=== PATIENT | female | born 1980 | race Two or more races ===

== ENCOUNTER 2018-01-23 13:59 | Emergency (ER) | payer BC ==
[~2018-01-23] VITALS: Ht 160 cm; Wt 88.5 kg
[~2018-01-23 13:59] MED LIST: METF-442 PO
--- NOTE | 2018-01-23 14:03 | NUR ---
A/OX4, AMBULATORY IN A STEADY GAIT TO ED BED 13 C/O NON PROVOKED MID STRENAL CHEST PAIN-SHARP RADIATING TO THE BACK X 11AM. PT WAS SEEN BY HER STAFF AUDITOR TODAY AND HER HEART RATE WAS NOTED TO BE FAST AND SHE WAS SENT HERE TO EVALUATED. GOWNED AND PLACED ON CONT MONITORING. ALL NEEDS ARE ATTENDED, KEPT WARM AND COMFORTABLE. WILL CONT TO MONITOR
--- NOTE | 2018-01-23 14:27 | NUR ---
EKG IN PROGRESS AT BEDSIDE.
[2018-01-23 15:40] LABS: BASOPHILS % (AUTO) 0.4 % (0.0-2.0); EOSINOPHILS % (AUTO) 0.9 % (0.0-6.0); HEMATOCRIT 36 % (33-45); LYMPHOCYTES # (AUTO) 2.6 /CMM (0.8-4.8); LYMPHOCYTES % (AUTO) 33.7 % (20.0-44.0); MEAN CORPUSCULAR HGB CONC 33 g/dl (31.0-36.0); MEAN CORPUSCULAR VOLUME 73 fL (82-100); MONOCYTES # (AUTO) 0.5 /CMM (0.1-1.30); MONOCYTES % (AUTO) 6.8 % (2.0-12.0); NEUTROPHILS # (AUTO) 4.5 /CMM (1.8-8.9); NEUTROPHILS % (AUTO) 58.2 % (43.0-81.0); PLATELET COUNT (AUTO) 414 /CMM (150-450); RDW COEFFICIENT OF VARIATION 16.4 (11.5-15.0); WHITE BLOOD COUNT (AUTO) 7.7 K/uL (4.3-11.0)
[2018-01-23 15:53] LABS: INR 0.84 (0.85-1.15)
[2018-01-23 15:55] LABS: CARBON DIOXIDE 31 mmol/L (21-32); CHLORIDE 101 mmol/L (98-107); CREATININE 0.7 mg/dL (0.6-1.3); GLUCOSE 150 mg/dL (74-106); POTASSIUM 3.2 mmol/L (3.5-5.1); SODIUM SERUM 140 mmol/L (136-145); UREA NITROGEN, BLOOD 9 mg/dL (7-18)
[2018-01-23 15:57] LABS: TROPONIN I < 0.017 ng/mL (0.00-0.056)
[2018-01-23] MEDS ORDERED: POTASSIUM CHLORIDE 20 MEQ TAB.PRT.SR PO ONE ×2 (16:30→16:37)
[2018-01-23 19:09] VITALS: BP 135/78
--- NOTE | 2018-01-23 19:09 | NUR ---
IV removed. Catheter intact and site benign. Pressure and 4x4 applied to site. No bleeding noted.Patient discharged to home in stable condition. Written and verbal after care instructions given. Patient verbalizes understanding of instruction.
== END 2018-01-23 19:12 | disposition home or self-care (01) ==
LOC: ER 14:04
DX: R07.2 Precordial pain (principal); E87.6 Hypokalemia; E11.9 Type 2 diabetes mellitus without complications; I45.10 Unspecified right bundle-branch block; M06.9 Rheumatoid arthritis, unspecified
CPT/HCPCS: 36415; 71045; 80048; 84443; 84484 ×2; 85025; 85730; 93005 ×2; 99285; A4606; Z7610

== ENCOUNTER 2018-03-26 20:29 | Emergency (ER) | payer BC, OTHER ==
[~2018-03-26 20:29] MED LIST changes: -METF-442 PO; +METF10004 PO
--- NOTE | 2018-03-26 21:23 | NUR ---
CALLED PT NAME X3 IN WAITING ROOM. ADMITTING STATES SHE MIGHT HAVE LEFT. WILL FOLLOW UP.
--- NOTE | 2018-03-26 21:34 | NUR ---
CALLED PT NAME X 3 IN WR. NO RESPONSE.
== END 2018-03-26 21:37 | disposition left against medical advice (07) ==
LOC: ER 20:29
DX: Z53.21 Procedure and treatment not carried out due to patient leaving prior to being seen by health care provider (principal)

== ENCOUNTER 2019-04-24 20:14 | Emergency (ER) | payer BC, OTHER ==
[~2019-04-24] VITALS: Ht 160 cm; Wt 83.5 kg
[~2019-04-24 20:14] MED LIST changes: +METF-442 PO; -METF10004 PO
--- NOTE | 2019-04-24 20:32 | NUR ---
PT BIB SELF FROM HOME FOR CP X 1 WEEK; WORSE TODAY, PT AAOX4, -SOB, NAD NOTED, VSS, PENDING MD CONNER
[2019-04-24 20:50] LABS: BASOPHILS % (AUTO) 0.6 % (0.0-2.0); EOSINOPHILS % (AUTO) 1.8 % (0.0-6.0); HEMATOCRIT 38 % (33-45); HEMOGLOBIN 12.1 g/dL (11.5-14.8); LYMPHOCYTES # (AUTO) 2.2 /CMM (0.8-4.8); LYMPHOCYTES % (AUTO) 31.3 % (20.0-44.0); MEAN CORPUSCULAR HGB CONC 32 g/dl (31.0-36.0); MEAN CORPUSCULAR VOLUME 72 fL (82-100); MONOCYTES # (AUTO) 0.7 /CMM (0.1-1.30); MONOCYTES % (AUTO) 10.7 % (2.0-12.0); NEUTROPHILS # (AUTO) 3.9 /CMM (1.8-8.9); NEUTROPHILS % (AUTO) 55.6 % (43.0-81.0); PLATELET COUNT (AUTO) 450 /CMM (150-450); RED BLOOD CELL COUNT(AUTO) 5.22 MIL/uL (4.0-5.2)
[2019-04-24 20:58] LABS: CALCIUM, SERUM 8.9 mg/dL (8.5-10.1); CREATININE 0.7 mg/dL (0.6-1.3); POTASSIUM 2.9 mmol/L (3.5-5.1)
[2019-04-24 21:04] LABS: ALBUMIN 3.6 g/dL (3.4-5.0); BILIRUBIN,DIRECT 0.1 mg/dL (0.0-0.2); BILIRUBIN,TOTAL 0.2 mg/dL (0.2-1.0); TOTAL PROTEIN, SERUM 7.1 g/dL (6.4-8.2)
[2019-04-24 21:11] LABS: BAND % (MANUAL) 14 % (0.0-5.0); EOSINOPHILS % (MANUAL) 3 % (0-4); LYMPHOCYTES % (MANUAL) 28 % (16-48); MONOCYTES % (MANUAL) 12 % (0-11.0); NEUTROPHILS % (MANUAL) 43 (42-76)
[2019-04-24] MEDS ORDERED: CT SWABBABLE VALVE TRANS SET 1 EA INFUS.SET MC ONE (21:44)
[2019-04-24] MEDS ORDERED: IV NS 0.9% 250 ML IV ONE (21:44)
[2019-04-24] MEDS ORDERED: IOHEXOL-350 100 ML VIAL IV ONE (21:44)
[2019-04-24] MEDS ORDERED: POTASSIUM CHLORIDE 20 MEQ TAB.PRT.SR PO ONE (22:00)
--- NOTE | 2019-04-24 22:38 | NUR ---
Patient discharged to home in stable condition. Written and verbal after care instructions given. Patient verbalizes understanding of instruction. IV removed. Catheter intact and site benign. Pressure and 4x4 applied to site. No bleeding noted.
[2019-04-24 22:44] VITALS: BP 121/76
== END 2019-04-24 22:46 | disposition home or self-care (01) ==
LOC: ER 20:14
DX: E11.9 Type 2 diabetes mellitus without complications (principal); R07.89 Other chest pain; E87.6 Hypokalemia; I10 Essential (primary) hypertension; I45.10 Unspecified right bundle-branch block; R00.0 Tachycardia, unspecified
CPT/HCPCS: 36415; 71045; 71275; 80048; 80076; 84484; 85025; 93005 ×3; 99284; J7050; Q9967

== ENCOUNTER → 2021-04-08 | Emergency (ER) | payer BC ==
[~2021-04-08] VITALS: Ht 160 cm; Wt 88.9 kg
[~2021-04-08] MED LIST changes: +NITR100C6 PO; +ONDANSETRON 4 MG TAB.RAPDIS ONE; +ONDANSETRON 4 MG TAB.RAPDIS SL ONE
[2021-04-08 12:05] VITALS: BP 112/79
--- NOTE | 2021-04-08 12:14 | NUR ---
THE PATIENT BIBS FOR C/O BACK PAIN X 3 DAYS ASSOCIATED WITH FOUL SMELLING DARK YELLOW URINE. RATES PAIN 8/10. WILL CONTINUE TO MONITOR THE PATIENT.
[2021-04-08 12:54] LABS: BILIRUBIN,URINE Negative (NEGATIVE); COLOR,URINE YELLOW (YELLOW); LEUKOCYTE ESTERASE ,URINE Negative (NEGATIVE); NITRITE, URINE Negative (NEGATIVE); PROTEIN,URINE Negative (NEGATIVE); UGLUCOSE >=1000 mg/dL (NEGATIVE); UROBILINOGEN,URINE 0.2 EU/dL (0.2)
[2021-04-08 12:55] LABS: BACTERIA,URINE Few /HPF (None Seen); SQUAMOUS EPITHELIAL CELL,UR Few /HPF (None Seen)
--- NOTE | 2021-04-08 13:22 | NUR ---
Patient discharged to home in stable condition. Written and verbal after care instructions given. Patient verbalizes understanding of instruction.
--- NOTE | 2021-04-08 13:23 | NUR ---
UNABLE TO DEPART THE PATIENT FROM [facility]
== END | disposition home or self-care (01) ==
LOC: ER 13:26
DX: N39.0 Urinary tract infection, site not specified (principal); E11.9 Type 2 diabetes mellitus without complications; I10 Essential (primary) hypertension; Z79.84 Long term (current) use of oral hypoglycemic drugs
CPT/HCPCS: 81001; 84703; 87086; 99283; Q0162

== ENCOUNTER 2022-01-07 10:14 | Emergency (ER) | payer BC ==
[~2022-01-07] VITALS: Ht 160 cm; Wt 83.5 kg
[~2022-01-07 10:14] MED LIST changes: -ONDANSETRON 4 MG TAB.RAPDIS ONE; -ONDANSETRON 4 MG TAB.RAPDIS SL ONE
--- NOTE | 2022-01-07 10:50 | NUR ---
RIGHT FLANK PAIN UPON WAKING UP THIS MORNING. AAOX4, AMBULATORY, IN PAIN 04/03
--- NOTE | 2022-01-07 11:43 | NUR ---
URINE SAMPLE COLLECTED AND SENT TO LAB.
[2022-01-07 12:00] LABS: BASOPHILS # (AUTO) 0.1 K/uL (0.0-0.2); BASOPHILS % (AUTO) 0.7 % (0.0-2.0); EOSINOPHILS % (AUTO) 0.1 % (0.0-6.0); HEMATOCRIT 36 % (33-45); HEMOGLOBIN 11.1 g/dL (11.5-14.8); LYMPHOCYTES # (AUTO) 1.9 K/uL (0.8-4.8); LYMPHOCYTES % (AUTO) 17.7 % (20.0-44.0); MEAN CORPUSCULAR HGB CONC 31 g/dl (31.0-36.0); MEAN CORPUSCULAR VOLUME 68 fL (82-100); MONOCYTES # (AUTO) 0.5 K/uL (0.1-1.30); MONOCYTES % (AUTO) 4.6 % (2.0-12.0); NEUTROPHILS # (AUTO) 8.1 K/uL (1.8-8.9); NEUTROPHILS % (AUTO) 76.9 % (43.0-81.0); PLATELET COUNT (AUTO) 438 K/uL (150-450); RED BLOOD CELL COUNT(AUTO) 5.36 MIL/uL (4.0-5.2); WHITE BLOOD COUNT (AUTO) 10.5 K/uL (4.3-11.0)
[2022-01-07 12:04] LABS: BILIRUBIN,URINE NEGATIVE (NEGATIVE); COLOR,URINE YELLOW (YELLOW); LEUKOCYTE ESTERASE ,URINE NEGATIVE (NEGATIVE); NITRITE, URINE NEGATIVE (NEGATIVE); PROTEIN,URINE NEGATIVE (NEGATIVE); UGLUCOSE >=1000 mg/dL (NEGATIVE); UROBILINOGEN,URINE 0.2 EU/dL (0.2)
[2022-01-07 12:07] LABS: BILIRUBIN,DIRECT 0.1 mg/dL (0.0-0.2); BILIRUBIN,TOTAL 0.2 mg/dL (0.2-1.0); CALCIUM, SERUM 10.1 mg/dL (8.5-10.1); CREATININE 0.8 mg/dL (0.6-1.3); POTASSIUM 3.8 mmol/L (3.5-5.1); TOTAL PROTEIN, SERUM 8.2 g/dL (6.4-8.2)
[2022-01-07 12:30] LABS: RBC,URINE 0-1 /HPF (0-2)
[2022-01-07 12:31] LABS: BACTERIA,URINE Few /HPF (None Seen); SQUAMOUS EPITHELIAL CELL,UR Moderate /HPF (None Seen); YEAST,URINE Few /HPF (None Seen)
--- NOTE | 2022-01-07 12:34 | NUR ---
ULTRA SOUND TECH. AT BED SIDE
[2022-01-07] MEDS ORDERED: HYDROCODONE/APAP 10/325MG TABLET PO ONE (13:00)
[2022-01-07] MEDS ORDERED: IBUPROFEN 600 MG TABLET PO ONE (13:00)
[2022-01-07] MEDS ORDERED: HYDROCODONE/APAP 10/325MG TABLET ONE (13:12)
[2022-01-07] MEDS ORDERED: IBUPROFEN 600 MG TABLET ONE (13:13)
[2022-01-07] MEDS ORDERED: IBUP-1955 PO (14:57)
[2022-01-07] MEDS ORDERED: TRAM50TA2 PO (14:57)
--- NOTE | 2022-01-07 15:05 | NUR ---
Patient discharged to home in stable condition. Written and verbal after care instructions given. Patient verbalizes understanding of instruction.
[2022-01-07 15:06] VITALS: BP 115/80
== END 2022-01-07 15:06 | disposition home or self-care (01) ==
LOC: ER 10:21
DX: N20.0 Calculus of kidney (principal); E11.9 Type 2 diabetes mellitus without complications; I10 Essential (primary) hypertension; Z79.84 Long term (current) use of oral hypoglycemic drugs
CPT/HCPCS: 36415; 76770-TC; 80048-TC; 80076-TC; 81001; 83690-TC; 84703-TC; 85025-TC

== ENCOUNTER 2023-01-17 14:51 | Emergency (ER) | payer BC ==
[~2023-01-17] VITALS: Ht 160 cm; Wt 75.7 kg
[~2023-01-17 14:51] MED LIST changes: +IBUP-1955 PO; +TRAM50TA2 PO
--- NOTE | 2023-01-17 15:20 | NUR ---
RECEIVED PT 42 YRS FEMALE CAME FROM HOME C/O GENRALIZED WEEKNESS AND SYNCOPY FAINT AND FALL DOWN AND HIT HERE HEAD C/O HEADCK
--- NOTE | 2023-01-17 16:01 | NUR ---
ANAIS TO BE SEE BY
[2023-01-17] MEDS ORDERED: IV NS 0.9% 1,000 ML BAG IV ONE (17:00)
--- NOTE | 2023-01-17 17:16 | NUR ---
TO CT SCAN OF HEAD
[2023-01-17 17:21] LABS: BASOPHILS % (AUTO) 0.3 % (0.0-2.0); EOSINOPHILS % (AUTO) 0.4 % (0.0-6.0); HEMATOCRIT 29 % (33-45); LYMPHOCYTES # (AUTO) 2.4 K/uL (0.8-4.8); LYMPHOCYTES % (AUTO) 28.2 % (20.0-44.0); MEAN CORPUSCULAR HGB CONC 31 g/dl (31.0-36.0); MEAN CORPUSCULAR VOLUME 68 fL (82-100); MONOCYTES # (AUTO) 0.7 K/uL (0.1-1.30); MONOCYTES % (AUTO) 7.7 % (2.0-12.0); NEUTROPHILS # (AUTO) 5.4 K/uL (1.8-8.9); NEUTROPHILS % (AUTO) 63.4 % (43.0-81.0); PLATELET COUNT (AUTO) 383 K/uL (150-450); RED BLOOD CELL COUNT(AUTO) 4.23 MIL/uL (4.0-5.2); WHITE BLOOD COUNT (AUTO) 8.5 K/uL (4.3-11.0)
[2023-01-17 17:32] LABS: CARBON DIOXIDE 26 mmol/L (21-32); CHLORIDE 99 mmol/L (98-107); CREATININE 0.8 mg/dL (0.6-1.3); GLUCOSE 97 mg/dL (74-106); POTASSIUM 3.3 mmol/L (3.5-5.1); SODIUM SERUM 134 mmol/L (136-145); UREA NITROGEN, BLOOD 10 mg/dL (7-18)
--- NOTE | 2023-01-17 18:37 | NUR ---
Updated with aware of plan of care
[2023-01-17 19:27] LABS: LYMPHOCYTES % (MANUAL) 27 % (16-48); MONOCYTES % (MANUAL) 3 % (0-11.0); NEUTROPHILS % (MANUAL) 70 (42-76)
[2023-01-17] MEDS ORDERED: IBUPROFEN 600 MG TABLET ONE (19:59)
[2023-01-17] MEDS ORDERED: POTASSIUM CHLORIDE 20 MEQ TAB.PRT.SR PO ONE ×2 (19:59→20:00)
[2023-01-17] MEDS ORDERED: IBUPROFEN 600 MG TABLET PO ONE (20:00)
[2023-01-17 20:08] VITALS: BP 125/71
== END 2023-01-17 20:10 | disposition home or self-care (01) ==
LOC: ER 14:52
DX: E87.6 Hypokalemia (principal); R55 Syncope and collapse; R94.31 Abnormal electrocardiogram [ECG] [EKG]; I10 Essential (primary) hypertension; E11.9 Type 2 diabetes mellitus without complications; Z79.899 Other long term (current) drug therapy; Z79.84 Long term (current) use of oral hypoglycemic drugs
CPT/HCPCS: 99285; 72125; 96360; 71045; 93005; 70450; 85025; 80048; 83735; 84484; 85007; J7030; 36415

== ENCOUNTER 2024-02-22 16:21 | Emergency (ER) | payer BC ==
[~2024-02-22] VITALS: Ht 160 cm; Wt 68.0 kg
[2024-02-22] MEDS ORDERED: CAPS42.513 TP (16:54)
[2024-02-22] MEDS ORDERED: NAPR-1009 PO (16:54)
[2024-02-22] MEDS ORDERED: PRED50TA PO (16:54)
[2024-02-22] MEDS ORDERED: KETOROLAC TROMETHAMINE INJ 30 MG/ML VIAL ONE (16:57)
[2024-02-22] MEDS: KETOROLAC TROMETHAMINE INJ 60 MG/2 ML VIAL IM ONE (17:00)
[2024-02-22 17:30] VITALS: O2SAT 100
[2024-02-22 17:48] VITALS: BP 100/65; TEMP 98.2
== END 2024-02-22 17:48 | disposition home or self-care (01) ==
LOC: ER 16:24
DX: M54.41 Lumbago with sciatica, right side (principal); M54.42 Lumbago with sciatica, left side; I10 Essential (primary) hypertension; E11.9 Type 2 diabetes mellitus without complications
CPT/HCPCS: 99283; 96372; J1885